=== PATIENT | female | born 1995 | race Caucasian/White ===

== ENCOUNTER 2016-06-24 13:17 | Emergency (ER) | payer SELFPAY ==
[2016-06-24 13:32] VITALS: BP 159/85
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
== END 2016-06-24 15:39 | disposition home or self-care (01) ==
LOC: ED 13:17
DX: M25.552 Pain in left hip (principal); M25.512 Pain in left shoulder; V89.2XXA Person injured in unspecified motor-vehicle accident, traffic, initial encounter; Y93.9 Activity, unspecified; Y92.9 Unspecified place or not applicable
CPT/HCPCS: 99281

== ENCOUNTER 2016-09-05 21:33 | Emergency (ER) | payer BC ==
[2016-09-05 21:41] VITALS: BP 157/93
--- NOTE | 2016-09-05 22:27 | UC ---
Skin Complaint HPI - HPI Summary HPI Summary: The patient comes in today for: 1. Skin lesions Onset: 2 days ago. Palliative/provocative: Touching makes it worse. Quality: Throbbing. Region: Lower left Severity: 10/10 Time: Constant. Associated symptoms: Event: She does not know for sure that "bit" her, but initially, they were small red areas. Over the last 24 hours, they got worse with whiteheads. They are tender. Home treatment: Lanacaine did not help. * - History of Current Complaint Chief Complaint: UCSkin Time Seen by Provider: 09/05/16 22:22 Stated Complaint: BUG BITES ON LEG Hx Obtained From: Patient Hx Last Menstrual Period: 09/01/16 ?: No - Allergy/Home Medications Allergies/Adverse Reactions: Allergies Allergy/AdvReac Type Severity Reaction Status Date / Time Spironolactone Allergy See Comment Verified 09/05/16 21:40 Home Medications: Home Medications Benzocaine-Benzethonium [Lanacane Anti-Itch 2-in-1 20-0.2 %] 1 cre EX PRN [History] Review of Systems Constitutional: Negative Skin: Rash Eyes: Negative ENT: Negative Respiratory: Negative Cardiovascular: Negative Gastrointestinal: Negative Genitourinary: Negative Motor: Negative All Other Systems Reviewed And Are Negative: Yes PMH/Surg Hx/FS Hx/Imm Hx Previously Healthy: No - Family planning/BCP Psychological History: Anxiety, Depression - Surgical History Surgical History: Yes Surgery Procedure, Year, and Place: Spine Curvature repair at age 2 years - Family History Known Family History: Positive: Cardiac Disease - father CAD, Hypertension - father, Diabetes - mother - Social History Occupation: Employed Full-time Alcohol Use: Occasionally Substance Use Type: None Smoking Status (MU): Never Smoked Tobacco Household Exposure Type: Cigarettes - Immunization History Most Recent Influenza Vaccination: not recently Most Recent Tetanus Shot: up to date Physical Exam Triage Information Reviewed: Yes Appearance: Well-Appearing, No Pain Distress, Well-Nourished Vital Signs: Initial Vital Signs Temp 97.3 F 09/05/16 21:37 Pulse 105 09/05/16 21:37 Resp 16 09/05/16 21:37 BP 157/93 09/05/16 21:37 Pulse Ox 100 09/05/16 21:37 Vital Signs Reviewed: Yes Eyes: Positive: Conjunctiva Clear. Negative: Discharge ENT: Positive: Hearing grossly normal. Negative: Pharyngeal erythema, Nasal congestion, Nasal drainage, TM bulging, TM dull, TM red, Tonsillar swelling, Tonsillar exudate Dental: Negative: Gross Decay/Caries @, Dental Fracture @ Neck: Positive: Supple, Nontender, No Lymphadenopathy. Negative: Nuchal Rigidity Respiratory: Positive: Lungs clear, No respiratory distress, No accessory muscle use. Negative: Crackles, Wheezing Cardiovascular: Positive: RRR, No Murmur Abdomen Description: Positive: Nontender, No Organomegaly, Soft. Negative: Distended, Guarding Musculoskeletal: Positive: Strength Intact, ROM Intact Neurological: Positive: Alert Psychological: Positive: Age Appropriate Behavior, Consolable Skin: Positive: rashes - She had muliple erthematous and tender macular lesions on her lower left anterior leg. A few of these lesions has pustules. The tops of these were broken and the pus captured for culture. Course/Dx - Course Course Of Treatment: Skin culture was taken. - Diagnoses Provider Diagnoses: cellulitis Discharge - Discharge Plan Condition: Stable Disposition: HOME Patient Education Materials: Cellulitis (ED) Referrals: No Primary Care Phys,NOPCP [Primary Care Provider] - 3 Days (Please see your primary care provider in the next several days to see how well you are doing. If you don't have a primary care provider, please contact the physician referral service. If you can't get in timely, please you may come back to see us until you can. If you get worse, please be seen sooner by us or the ER.) Additional Instructions: IF you are not able to see your primary care provider by this or Monday , please go to the [place] office in the morning for me to check you then.
[2016-09-05] MEDS ORDERED: Cephalexin CAP* 500 MG PO ONE (22:34)
[2016-09-05] MEDS ORDERED: Sulfamethox/Trimethoprim DS 800/160* TAB PO ONE (22:34)
--- NOTE | 2016-09-08 14:57 | UC ---
Progress - Progress Note Progress Note: Please notify pt culture (+) for staph may stop one of the antibiotics (either one will cover it) she should follow up as per d/c instructions
== END 2016-09-05 22:54 | disposition home or self-care (01) ==
LOC: UCEAST 21:33
DX: L03.116 Cellulitis of left lower limb (principal)
CPT/HCPCS: 87070; 87077; 87186; 87205; 87640; 87641; 99213; A9270-GY; G0463

== ENCOUNTER 2017-08-07 17:58 | Emergency (ER) | payer BC, OTHER ==
[2017-08-07 18:07] VITALS: BP 159/111
--- NOTE | 2017-08-07 19:01 | UC ---
Abdominal Pain Female HPI - HPI Summary HPI Summary: 21 yo female with dysuria and urgency x 1 day no f/c some suprapubic pain no d/c no n/v/d - History of Current Complaint Chief Complaint: UCAbdominalPain Stated Complaint: ABDOMINAL PAIN Time Seen by Provider: 08/07/17 18:37 Hx Obtained From: Patient Hx Last Menstrual Period: 3 wks ago Onset/Duration: Gradual Onset, Lasting Hours Timing: Constant Severity Initially: Mild Severity Currently: Mild Pain Intensity: 0 Pain Scale Used: 0-10 Numeric Location: Suprapubic Character: Burning Alleviating Factor(s): Nothing Associated Signs and Symptoms: Positive: Negative, Urinary Symptoms Allergies/Adverse Reactions: Allergies Allergy/AdvReac Type Severity Reaction Status Date / Time spironolactone Allergy Difficulty Verified 08/07/17 18:08 Breathing PMH/Surg Hx/FS Hx/Imm Hx Previously Healthy: Yes Cardiovascular History: Hypertension - on no meds - Surgical History Surgical History: Yes Surgery Procedure, Year, and Place: Spine Curvature repair at age 2 years - Family History Known Family History: Positive: Cardiac Disease - father CAD, Hypertension - father, Diabetes - mother - Social History Alcohol Use: Occasionally Substance Use Type: None Smoking Status (MU): Never Smoked Tobacco Household Exposure Type: Cigarettes - Immunization History Most Recent Influenza Vaccination: not recently Most Recent Tetanus Shot: up to date Review of Systems Constitutional: Negative Skin: Negative Eyes: Negative ENT: Negative Respiratory: Negative Cardiovascular: Negative Gastrointestinal: Negative Genitourinary: Dysuria, Frequency, Urgency Motor: Negative Neurovascular: Negative Musculoskeletal: Negative Neurological: Negative Psychological: Negative Is Patient Immunocompromised?: No All Other Systems Reviewed And Are Negative: Yes Physical Exam Triage Information Reviewed: Yes Appearance: Well-Appearing, No Pain Distress, Well-Nourished Vital Signs: Initial Vital Signs Temp 97.4 F 08/07/17 18:04 Pulse 95 08/07/17 18:04 Resp 12 08/07/17 18:04 BP 159/111 08/07/17 18:04 Pulse Ox 100 08/07/17 18:04 Vital Signs Reviewed: Yes Eyes: Positive: Conjunctiva Clear ENT: Positive: Hearing grossly normal. Negative: Nasal congestion, Nasal drainage, Trismus, Muffled voice, Hoarse voice Neck: Positive: Supple, Nontender, No Lymphadenopathy Respiratory: Positive: Lungs clear, Normal breath sounds, No respiratory distress, No accessory muscle use Cardiovascular: Positive: RRR, No Murmur Abdomen Description: Positive: Nontender, No Organomegaly. Negative: CVA Tenderness (R), CVA Tenderness (L), Distended, Guarding Bowel Sounds: Positive: Present Musculoskeletal: Positive: ROM Intact, No Edema Neurological: Positive: Alert, Muscle Tone Normal Psychological Exam: Normal Skin Exam: Normal Abd Pain Female Course/Dx - Course Course Of Treatment: UA ++WBCs, ++ RBCs. (-) HCG. advised to see her PCP to recheck BP - Differential Dx/Diagnosis Provider Diagnoses: dysuria. suspect UTI Discharge - Sign-Out/Discharge Documenting (check all that apply): Discharge/Admit/Transfer - Discharge Plan Condition: Stable Disposition: HOME Prescriptions: Cephalexin CAP* [Keflex CAP*] 500 mg PO BID #14 cap Fluconazole 150 MG (NF) [Diflucan 150 mg (NF)] 150 mg PO ONCE #2 tab Phenazopyridine TAB* [Pyridium TAB*] 100 mg PO TID #6 tab Patient Education Materials: Dysuria (ED) Referrals: No Primary Care Phys,NOPCP [Primary Care Provider] - Additional Instructions: recheck for worsening symptoms recheck for new symptoms recheck in 2 days if not better - Billing Disposition and Condition Condition: STABLE Disposition: HOME
== END 2017-08-07 19:13 | disposition home or self-care (01) ==
LOC: UCEAST 17:58
DX: R30.0 Dysuria (principal); Z32.02 Encounter for pregnancy test, result negative; I10 Essential (primary) hypertension
CPT/HCPCS: 81003; 84702; 87086; 99212; G0463

== ENCOUNTER 2018-04-28 17:14 | Inpatient (IN) | payer BC ==
--- OUTSIDE RECORDS SUMMARY | 2018-04-28 17:35 | XMS REPORT | Continuity of Care Document ---
:1995 Author Organization [facility] Care Team Providers Name Role Phone RENETTA LOCK Admitting Physician RENETTA LOCK Attending Physician MERT DAWSON Primary Care Physician Allergies and Intolerances Code Code Allergy Substance Type Reaction Severity Start End Status System Date Date 999 RXNorm Spironolactone Drug Shortness of Unknown Active allergy breath (disorder) Medications RxNorm Medication Dose Route Instructions Start Date End Date Status 033226 Ethinyl Estradiol 1 tab oral orally daily Active 0.035 MG / Norethindrone 1 MG Oral Tablet 19751211 Fluconazole 150 MG 150 mg oral orally once (take Active Oral Tablet one tab today and day 3 and day 8) Fluoxetine Oral 20 mg oral orally daily Active Problems No Data in the system Procedures No data in the system Results Laboratory Results Order: GC-CHLAMYDIA AMPLIFIED ASSAY Specimen Source: Swab Body Site: Endocervix Legend: (G,H)=High, (GG,HH,CH,#H)= Above High Threshold, (#,L)=Low, (##,CL,#L,LL)=Below Low Threshold, (C,CC,CA,#A, A)=Abnormal LOINC Test Result Flag Range Units Date 1C trach DNA XXX Ql PCR NEGATIVE NEGATIVE 03/24/2018 09:38 Interpretive Johanna: 1A negative result does not rule out Chlamydia trachomatis infection because results are dependent on adequate specimen collection, absence of inhibitors, and sufficient DNA to be detected. Methodology: Nucleic Acid Amplification (JASMIN) 65899-9 1N gonorrhoea DNA XXX Ql PCR NEGATIVE NEGATIVE 03/24/2018 09:38 Interpretive Johanna: 1A negative result does not rule out Neisseria gonorrhoeae infection because results are dependent on adequate specimen collection, absence of inhibitors, and sufficient DNA to be detected. Performing Lab Footnotes:[facility] - [id number] [place] [address] ANUSHA BURDENGORAN Order: VAGINITIS PANEL Specimen Source: Body Site: Legend: (G,H)=High, (GG,HH,CH,#H)=Above High Threshold, (#,L)=Low, (##,CL,#L,LL)=Below Low Threshold , (C,CC,CA,#A,A)=Abnormal LOINC Test Result Flag Range Units Date 1Trichomonas Genital Cult NEGATIVE NEGATIVE 03/24/2018 09:35 00646-8 1G vaginalis DNA Vag Ql NEGATIVE NEGATIVE 03/24/2018 09:35 bDNA 59063-6 1Candida DNA Vag Ql PCR NEGATIVE NEGATIVE 03/24/2018 09:35 1Methodology: DNA Probe Performing Lab Footnotes:[facility] - [id number] [place] [address] ANUSHA RODGERSD1 Microbiology Results w Susceptibilities Order: CULTURE URINE Specimen Source: Urine Body Site: Urine specimen collection, clean catchCultural Observations:Mixed growth consistent with vaginal marylu itpwfuq7Juhnyxdtex Lab Footnotes:[facility] - [id number] [place] [address] ANUSHA LUND Order: CULTURE VAGINAL-CERVICAL Specimen Source: Swab Body Site: Cervix uteri structureDirect Exam:Smear not received. Gram stain is the preferred test for the [id number] of bacterial vaginosis.1Cultural Observations: Staphylococcus aureus, Streptococcus agalactiae (Group B), or [id number] were NOT isolated.1Isolate #1:1Yeast (Rare)Performing Lab Footnotes:[facility] - [id number] - [address] [place] [address] ANUSHA LUND Social History Code Code System Social History Observation Description Dates Observed 662567393 SNOMED CT Current Smoking Status Never smoker UNK AdministrativeGender Sex Assigned At Unknown Vital Signs Code Code System Vitals Value Date 8310-5 LOINC Body Temperature 98.9 [degF] 03/24/2018 8865-8 LOINC Pulse Rate 85 {beats}/min 03/24/2018 9279-1 LOINC Respiratory Rate 20 /min 03/24/2018 19624-7 LOINC O2% BldC Oximetry 96 % 03/24/2018 8480-6 LOINC BP Systolic 131 mm[Hg] 03/24/2018 8462-4 LOINC BP Diastolic 89 mm[Hg] 03/24/2018 8302-2 LOINC Height 63 [in_i] 03/24/2018 74106-1 LOINC Weight 127 kg 03/24/2018 3140-1 LOINC Body surface area Derived from formula 2.23 m2 03/24/2018 62373-9 MAY BMI (Body Mass Index) 49.6 kg/m2 03/24/2018 Goals Section No data in the system Health Concerns No data in the systemEncounter Diagnosis Date Code Code System Diagnosis Status N76.0 ICD10 ACUTE VAGINITIS Active Advance Directives *RHIO - CONSENT IS YES Directive Type Effective Date 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 Supporting Document Name Address Phone No Directive Type 03/24/2018 9:25:51 Not Specified Not Specified Not Specified None No specified AM Family History No data in the system Functional Status Code Functional Condition Code System Date Status Independent adls SNOMED CT 03/24/2018 Active Appears well nourished/hydrated SNOMED CT 03/24/2018 Active Immunizations No data in the system Medical Equipment No data in the system Mental Status Code Cognitive Condition Code System Date Status Oriented x [address] 03/24/2018 Active Moves all extremities SNOMED CT 03/24/2018 Active No acute distress SNOMED CT 03/24/[address] 03/24/2018 Active Assessment and Plan Assessments No data in the systemPlan Of Treatment No data in the systemPending Tests Test Start Date Point of Care /URINE 03/24/2018 Point of Care URINE DIPSTICK 03/24/2018 Hospital Discharge Instructions No data in the system Reason for Visit Reason for Visit Illness
[2018-04-28 18:43] LABS: ABS Basophils 0.1 10^3/ul (0-0.2); ABS Eosinophils 0.2 10^3/ul (0-0.6); ABS Lymphocytes 1.2 10^3/ul (1.0-4.8); ABS Monocytes 0.7 10^3/ul (0-0.8); ABS Neutrophils 5.7 10^3/ul (1.5-7.7); ABS Nucleated RBC 0 10^3/ul; Eosinophil % 2.2 %; Hematocrit 40 % (35-47); Hemoglobin 13.1 g/dl (12.0-16.0); Lymphocyte % 15.7 %; Mean Corpuscular HGB Conc 33 g/dl (31-36); Mean Corpuscular Hemoglobin 28 pg (27-31); Mean Corpuscular Volume 84 fL (80-97); Mean Platelet Volume 6.8 fL (7.4-10.4); Nucleated Red Blood Cells % 0.1; Platelet Count 394 10^3/ul (150-450); Red Blood Count 4.72 10^6/ul (4.00-5.40); Red Cell Distribution Width 14 % (10.5-15); White Blood Count 7.9 10^3/ul (3.5-10.8)
[2018-04-28 18:49] LABS: INR 0.99 (0.77-1.02)
[2018-04-28 18:59] LABS: ALT 32 U/L (7-52); AST 31 U/L (13-39); Albumin/Globulin Ratio 1.1 (1-3); Alkaline Phosphatase 65 U/L (34-104); Anion Gap 10 mmol/L (2-11); Blood Urea Nitrogen 7 mg/dL (6-24); CO2 Carbon Dioxide 26 mmol/L (22-32); Calcium 7.1 mg/dL (8.6-10.3); Chloride 104 mmol/L (101-111); Creatine Kinase 267 U/L (10-223); EGFR African American 111.7 (>60); EGFR Non-African American 92.4 (>60); Globulin 3.7 g/dL (2-4); Glucose 108 mg/dL (70-100); Potassium 3.8 mmol/L (3.5-5.0); Sodium 140 mmol/L (135-145); Total Protein 7.7 g/dL (6.4-8.9)
[2018-04-28 19:03] LABS: CKMB ng/mL 19.6 ng/mL (0.6-6.3)
[2018-04-28 19:06] LABS: HCG Pregnancy < 0.60 mIU/mL
[2018-04-28] MEDS ORDERED: Aspirin 81 mg CHEW TAB* 81 MG TAB.CHEW PO ONE (19:16)
[2018-04-28] MEDS ORDERED: Heparin for STEMI(*) 5,000 UNITS/ML 1 ML VIAL IV ONE (19:16)
[2018-04-28 19:17] LABS: Troponin I 3.03 ng/mL (<0.04)
[2018-04-28] MEDS ORDERED: Heparin DRIP 25,000 UNITS(*) 25,000 UNITS/500 ML BAG IV SCH (19:30)
[2018-04-28 19:48] LABS: C Reactive Protein 83.14 mg/L (<8.01)
[2018-04-28] MEDS ORDERED: Heparin DRIP 25,000 UNITS(*) 25,000 UNITS/500 ML BAG ONE (19:53)
[2018-04-28 20:08] LABS: Activated Partial Thrombo Time 29.6 seconds (26.0-36.3)
[2018-04-28] MEDS ORDERED: ALPRAZolam TAB* 0.5 MG PO PRN (20:09)
--- NOTE | 2018-04-28 20:10 | ADMNOTE ---
Subjective Date of Service: 04/28/18 - HISTORY AND PHYSICAL Interval History: HISTORY AND PHYSICAL CHIEF COMPLAINT: Chest pain HISTORY OF PRESENTING ILLNESS: 22 year old Female with history of PCOS, anxiety on oral contraceptives, who presents to the emergency room because of chest pain. She was in her usual state of good health until two days ago. Two days ago, she developed "24 hour GI Bug" which shes described as diarrhea, chills and vomiting. This resolved, then yesterday at about 7:15 PM she developed sharp chest tightness which was also pressure like pain, associated with shortness of breath, which was worse when lying down. The pain resolved when she went to sleep. There was associated palpitations. Then today evening, the pain recurred- again sharp chest tightness with shortness of breath, and palpitations. Again it was worse when lying down. No recent travel. She has been on control pills X 2 years, with no recent changes. In the emergency room: Troponins were elevated, D-dimer was elevated, heparin drip was started, business applications analyst was called. PAST MEDICAL HISTORY Anxiety Polycystic ovarian syndrome PAST SURGICAL HISTORY Back surgery at age 2 SOCIAL HISTORY Lives at home, is a [employer]. Does not smoke, occasional alcohol use FAMILY HISTORY Mother: diabetes, lupus Father: Hypertension, heart disease Review of Systems - Measurements Intake and Output: Intake and Output Last 24 Hours 04/26/18 04/27/18 04/28/18 04/29/18 06:59 06:59 06:59 06:59 Weight 288 lb - Review of Systems Constitutional Symptoms: Negative: Fever, Night Sweats Dermatology: Negative: Normal, Rash HEENT: Negative: Change in Hearing, Vertigo Eyes: Negative: Change in Vision, Double Vision Thyroid: Negative: Goiter, Constipation, Palpitations Pulmonary: Positive: Shortness of Breath Negative: Cough, Sputum Cardiology: Positive: Chest Pain, Shortness of Breath, Palpitations Gastroenterology: Positive: Nausea, Vomiting, Diarrhea Genital - Urinary: Negative: Dysuria, Polyuria Genitourinay - Female: Negative: Vaginal Discharge, Dysmenorrhea Endocrinology: Positive: Obesity Negative: Diabetes Mellitus, Hyperglycemia, Hx Hypoglycemia Hematologic/Lymphatic: Negative: Anemia Neurology: Negative: Headache, Migraines, Change in Vision Psychiatry: Positive: Anxiety Negative: Depression, Depressed Mood Objective Active Medications: Alprazolam (Xanax Tab*) 0.5 mg PO BID PRN PRN Reason: ANXIETY Fluoxetine HCl (Prozac Cap*) 20 mg PO DAILY [facility] Heparin Sodium/Dextrose (Heparin Drip 25,000 Units(*)) 25,000 units in 500 mls @ 0 mls/hr IV PER RATE [facility]; Protocol Vital Signs - 8 hr 04/28/18 04/28/18 04/28/18 17:16 18:39 19:00 Temperature 97.6 F Pulse Rate 94 94 94 Respiratory 20 37 28 Rate Blood Pressure 167/99 (mmHg) O2 Sat by Pulse 98 98 99 Oximetry 04/28/18 19:44 Temperature Pulse Rate 100 Respiratory 23 Rate Blood Pressure 131/96 (mmHg) O2 Sat by Pulse 100 Oximetry Appearance: Obese young female lying in ER stretcher, not in distress. Atraumatic normocephalic Eyes: PERRLA, - - no nystagmus Ears/Nose/Mouth/Throat: Clear Oropharnyx, Mucous Membranes Moist, - - no oropharyngeal erythema, no cervical lymphadenopathy Neck: Trachea Midline, No Thyroid Enlargement, Masses Respiratory: Symmetrical Chest Expansion and Respiratory Effort, Clear to Auscultation Cardiovascular: - - no chest wall tenderness, no friciton rub, regular tachcyardia, no murmurs. Abdominal: NL Sounds; No Tenderness; No Distention, No Hepatosplenomegaly Extremities: No Edema, No Clubbing, Cyanosis Skin: No Rash or Ulcers Neurological: Alert and Oriented x 3, NL Sensation, NL Muscle Strength and Tone , - - speech clear, no facial droop, symmetric smile. no nystagmus. Result Diagrams: 04/28/18 18:33 04/28/18 18:33 EKG Data: EKG: sinus tachycardia Assess/Plan/Problems-Billing Assessment: - Patient Problems (1) Myopericarditis Current Visit: Yes Status: Acute Code(s): I31.9 - DISEASE OF PERICARDIUM, UNSPECIFIED SNOMED Code(s): 193543988 Comment: Likely myopericarditis, given recent viral illness. Cardiology saw patient in the ED. For now till we have ruled out other etiology: heparin drip. Check ECHO, serial trop, check CTA given control pills, obesity, female, and elvated d-dimer. If CTA negative, can use ibuprofen vs. aspirin as anit-inflammatory hold control pills for now. (2) Anxiety Current Visit: Yes Status: Acute Code(s): F41.9 - ANXIETY DISORDER, UNSPECIFIED SNOMED Code(s): 44484296 Comment: Continue home medications controlled. Status and Disposition: Assessment and plan discussed with patient Additional management as the hospital course progresses, per discretion of daytime rounding hospitalist.
[2018-04-28] MEDS ORDERED: Iodixanol* (CONTRAST) 320 MG/ML 100 ML SDV IV ONE (20:22)
--- NOTE | 2018-04-28 21:24 | ED ---
HPI Chest Pain - HPI Summary HPI Summary: Patient complains of 2 episodes of CP, SOB, palpitations, lightheadedness starting last night. CP described as sternal, tightness, no radiation. Patient had symptoms for several hours last night until she went to sleep. Patient felt fine in the morning. Sudden onset same symptoms this evening for about half an hour prior to arrival in the ED. Denies history of similar symptoms, fever, cough, sore throat, N/V/D, abdominal pain, change in vision, change in BM. Denies history of blood clots, recent surgery trauma, , history of long travel. Medical history is anxiety. Denies history of similar symptoms with anxiousness. Denies smoking cigarettes, legal or illegal stimulants, recreational drugs, EtOH. - History of Current Complaint Chief Complaint: EDChestPainROMI Time Seen by Provider: 04/28/18 18:29 Hx Obtained From: Patient Hx Last Menstrual Period: 3 wks ago Onset/Duration: Started Hours Ago Timing: Intermittent Initial Severity: Mild Current Severity: Mild Pain Intensity: 3 Pain Scale Used: 0-10 Numeric Chest Pain Location: Mid Sternal Chest Pain Radiates: No Character: Tightness Aggravating Factor(s): Nothing Alleviating Factor(s): Nothing Associated Signs and Symptoms: Positive: Chest Pain, Shortness of Breath, Palpitations - Allergy/Home Medications Allergies/Adverse Reactions: Allergies Allergy/AdvReac Type Severity Reaction Status Date / Time spironolactone Allergy Difficulty Verified 04/28/18 17:18 Breathing Home Medications: Home Medications ALPRAZolam [Alprazolam] 0.5 mg PO BID PRN 04/28/18 [History Confirmed 04/28/18] FLUoxetine CAP* [Prozac CAP*] 20 mg PO DAILY 04/28/18 [History Confirmed ] PMH/Surg Hx/FS Hx/Imm Hx Endocrine/Hematology History: Denies: Hx Diabetes, Hx Thyroid Disease Cardiovascular History: Denies: Hx Hypertension Respiratory History: Denies: Hx Asthma, Hx Chronic Obstructive Pulmonary Disease (COPD) GI History: Denies: Hx Ulcer History: Denies: Hx Dialysis Sensory History: Denies: Hx Eye Prosthesis EENT History: Denies: Hx Deafness Neurological History: Reports: Hx Migraine Denies: Hx Headaches Psychiatric History: Reports: Hx Anxiety Denies: Hx Depression - Surgical History Surgery Procedure, Year, and Place: Spine Curvature repair at age 2 years Infectious Disease History: No Infectious Disease History: Denies: Hx Hepatitis, Hx Human Immunodeficiency Virus (HIV), History Other Infectious Disease, Traveled Outside the [place] in Last 30 Days - Family History Known Family History: Positive: Cardiac Disease - father CAD, Hypertension - father, Diabetes - mother - Social History Alcohol Use: Occasionally Substance Use Type: Reports: None Smoking Status (MU): Never Smoked Tobacco Review of Systems Constitutional: Negative Eyes: Negative ENT: Negative Positive: Palpitations, Chest Pain Positive: Shortness Of Breath Gastrointestinal: Negative Genitourinary: Negative Musculoskeletal: Negative Skin: Negative Neurological: Negative Psychological: Normal All Other Systems Reviewed And Are Negative: Yes Physical Exam Triage Information Reviewed: Yes Vital Signs On Initial Exam: Initial Vitals Temp Pulse Resp BP Pulse Ox 97.6 F 94 20 167/99 98 04/28/18 17:16 04/28/18 17:16 04/28/18 17:16 04/28/18 17:16 04/28/18 17:16 Vital Signs Reviewed: Yes Appearance: Positive: Well-Appearing Skin: Positive: Warm Head/Face: Positive: Normal Head/Face Inspection Eyes: Positive: Normal ENT: Positive: Normal ENT inspection Neck: Positive: Supple Respiratory/Lung Sounds: Positive: Clear to Auscultation Cardiovascular: Positive: Normal Abdomen Description: Positive: Nontender Musculoskeletal: Positive: Normal Neurological: Positive: Normal Psychiatric: Positive: Normal AVPU Assessment: Alert - Tabitha Coma Scale Best Eye Response: 4 - Spontaneous Best Motor Response: 6 - Obeys Commands Best Verbal Response: 5 - Oriented Coma Scale Total: 15 Diagnostics - Vital Signs Vital Signs Temp Pulse Resp BP Pulse Ox 04/28/18 20:00 95 22 100 04/28/18 19:44 100 23 131/96 100 04/28/18 19:00 94 28 99 04/28/18 18:39 94 37 98 04/28/18 17:16 97.6 F 94 20 167/99 98 - Laboratory Lab Results: Lab Results 04/28/18 04/28/18 04/28/18 Range/Units 18:29 18:29 18:33 WBC 7.9 (3.5-10.8) 10^3/ul RBC 4.72 (4.00-5.40) 10^6/ul Hgb 13.1 (12.0-16.0) g/dl Hct 40 (35-47) % MCV 84 (80-97) fL MCH 28 (27-31) pg MCHC 33 (31-36) g/dl RDW 14 (10.5-15) % Plt Count 394 (150-450) 10^3/ul MPV 6.8 L (7.4-10.4) fL Neut % (Auto) 72.0 % Lymph % (Auto) 15.7 % [place] % (Auto) 9.3 % Eos % (Auto) 2.2 % Baso % (Auto) 0.8 % Absolute Neuts (auto) 5.7 (1.5-7.7) 10^3/ul Absolute Lymphs (auto) 1.2 (1.0-4.8) 10^3/ul Absolute Monos (auto) 0.7 (0-0.8) 10^3/ul Absolute Eos (auto) 0.2 (0-0.6) 10^3/ul Absolute Basos (auto) 0.1 (0-0.2) 10^3/ul Absolute Nucleated RBC 0 10^3/ul Nucleated RBC % 0.1 ESR 31 H (0-14) mm/Hr INR (Anticoag Therapy) (0.77-1.02) APTT 29.6 (26.0-36.3) seconds D-Dimer, Quantitative 270 H (Less Than 230) ng/mL Sodium (135-145) mmol/L Potassium (3.5-5.0) mmol/L Chloride (101-111) mmol/L Carbon Dioxide (22-32) mmol/L Anion Gap (2-11) mmol/L BUN (6-24) mg/dL Creatinine (0.51-0.95) mg/dL Est GFR ( Amer) (>60) Est GFR (Non-Af Amer) (>60) BUN/Creatinine Ratio (8-20) Glucose (70-100) mg/dL Lactic Acid (0.5-2.0) mmol/L Calcium (8.6-10.3) mg/dL Total Bilirubin (0.2-1.0) mg/dL AST (13-39) U/L ALT (7-52) U/L Alkaline Phosphatase (34-104) U/L Total Creatine Kinase (10-223) U/L CK-MB (CK-2) (0.6-6.3) ng/mL Troponin I (<0.04) ng/mL C-Reactive Protein (<8.01) mg/L Total Protein (6.4-8.9) g/dL Albumin (3.2-5.2) g/dL Globulin (2-4) g/dL Albumin/Globulin Ratio (1-3) Beta HCG, Quant mIU/mL 04/28/18 04/28/18 04/28/18 Range/Units 18:33 18:33 18:33 WBC (3.5-10.8) 10^3/ul RBC (4.00-5.40) 10^6/ul Hgb (12.0-16.0) g/dl Hct (35-47) % MCV (80-97) fL MCH (27-31) pg MCHC (31-36) g/dl RDW (10.5-15) % Plt Count (150-450) 10^3/ul MPV (7.4-10.4) fL Neut % (Auto) % Lymph % (Auto) % [place] % (Auto) % Eos % (Auto) % Baso % (Auto) % Absolute Neuts (auto) (1.5-7.7) 10^3/ul Absolute Lymphs (auto) (1.0-4.8) 10^3/ul Absolute Monos (auto) (0-0.8) 10^3/ul Absolute Eos (auto) (0-0.6) 10^3/ul Absolute Basos (auto) (0-0.2) 10^3/ul Absolute Nucleated RBC 10^3/ul Nucleated RBC % ESR (0-14) mm/Hr INR (Anticoag Therapy) 0.99 (0.77-1.02) APTT (26.0-36.3) seconds D-Dimer, Quantitative (Less Than 230) ng/mL Sodium 140 (135-145) mmol/L Potassium 3.8 (3.5-5.0) mmol/L Chloride 104 (101-111) mmol/L Carbon Dioxide 26 (22-32) mmol/L Anion Gap 10 (2-11) mmol/L BUN 7 (6-24) mg/dL Creatinine 0.78 (0.51-0.95) mg/dL Est GFR ( Amer) 111.7 (>60) Est GFR (Non-Af Amer) 92.4 (>60) BUN/Creatinine Ratio 9.0 (8-20) Glucose 108 H (70-100) mg/dL Lactic Acid 1.6 (0.5-2.0) mmol/L Calcium 7.1 L (8.6-10.3) mg/dL Total Bilirubin 0.20 (0.2-1.0) mg/dL AST 31 (13-39) U/L ALT 32 (7-52) U/L Alkaline Phosphatase 65 (34-104) U/L Total Creatine Kinase 267 H (10-223) U/L CK-MB (CK-2) 19.6 H (0.6-6.3) ng/mL Troponin I 3.03 H* (<0.04) ng/mL C-Reactive Protein 83.14 H (<8.01) mg/L Total Protein 7.7 (6.4-8.9) g/dL Albumin 4.0 (3.2-5.2) g/dL Globulin 3.7 (2-4) g/dL Albumin/Globulin Ratio 1.1 (1-3) Beta HCG, Quant < 0.60 mIU/mL Result Diagrams: 04/28/18 18:33 04/28/18 18:33 Lab Statement: Any lab studies that have been ordered have been reviewed, and results considered in the medical decision making process. Chest Pain Course/Dx - Course Course Of Treatment: Patient complains of 2 episodes of CP, SOB, palpitations, lightheadedness starting last night. CP described as sternal, tightness, no radiation. Patient had symptoms for several hours last night until she went to sleep. Patient felt fine in the morning. Sudden onset same symptoms this evening for about half an hour prior to arrival in the ED. Denies history of similar symptoms, fever, cough, sore throat, N/V/D, abdominal pain, change in vision, change in BM. Denies history of blood clots, recent surgery trauma, , history of long travel. Medical history is anxiety. Denies history of similar symptoms with anxiousness. Denies smoking cigarettes, legal or illegal stimulants, recreational drugs, EtOH. Physical exam normal. Vital signs within normal limits. ESR 31. D-dimer 270. Troponin 3.3. CRP 83. EKG mild diffuse ST elevation. Chest x-ray unremarkable. CTA unremarkable. Discussed patient with press operator printing rack production worker Dr. Ortiz who recommended admission. Dr. Ortiz stated likely diagnosis myopericarditis. Patient admitted to Hospitalist - Diagnoses Provider Diagnoses: Chest pain, Shortness of breath Discharge - Sign-Out/Discharge Documenting (check all that apply): Patient Departure - Discharge Plan Condition: Stable Disposition: ADMITTED TO [facility] - Billing Disposition and Condition Condition: STABLE Disposition: Admitted to [facility]
--- NOTE | 2018-04-29 00:25 | CONS ---
CARDIOLOGY CONSULTATION REPORT: DATE OF CONSULT: 04/28/18 PATIENT OF: Joanna Poon NP, over at [facility], and my office. CONSULTING PHYSICIAN: Dr. Laurence Ramirez. REASON FOR EVALUATION: Chest pain, elevated troponin. HISTORY OF PRESENT ILLNESS: This is a very pleasant 22-year-old woman who has a history of borderline hypertension, obesity, and oral contraceptive use for the last 3 years. She was in her usual state of health until 2 days ago on , when she had an episode of vomiting and a day of diarrhea and stomach upset associated with chills and fever, which she did not measure a temperature. She said that her symptoms resolved after about 12 to 14 hours. She felt well on Monday till 5 p.m. 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 It started at about 7:15 p.m. and progressed. She went to sleep later than night with the pain. She said it was worse with lying supine and better sitting up and she actually propped herself up. She said that she was fine again today until about 5 p.m., when she developed tightness. Again, was worse supine, better sitting up, and was associated with shortness of breath and a gradually increasing heart rate. Because of the symptoms, she came to emergency room. It resolved here in the emergency room, but her labs indicated an elevated troponin of 3.03 and a consultation was requested. She denies any chest pain now. She denies orthopnea or PND. No fevers, chills, or sweats. No diarrhea. No chest pain. No hematuria or dysuria. PAST MEDICAL HISTORY: Includes borderline hypertension, congenital absence of one kidney, obesity. She has been on oral contraceptives for 3 years. PAST SURGICAL HISTORY: She denies any past surgical history. FAMILY HISTORY: Includes her mother who of OH at 37 and she had diabetes and a father who is alive at 64, but had an OH at 58 and has vascular disease. She has no siblings. SOCIAL HISTORY: She is accompanied by her boyfriend. She denies tobacco use. She has about 2 alcoholic beverages a month. She has 4 cups of coffee a week. She does not exercise. She does not go up and down stairs. She has no shortness of breath or chest pain ordinarily walking the short distances she walks. She denies any previous syncope, rheumatic fever, or murmurs. REVIEW OF SYSTEMS: Review of systems x10 was negative, except as above. PHYSICAL EXAM: On physical exam, she is a well-developed, obese female, 288 pounds. Blood pressure 131/97, heart rate of 104, O2 sats 100% on room air. No significant JVD. Carotids 2+ without bruits. No cervical adenopathy or thyromegaly. Extraocular muscles intact. Sclerae anicteric. Cardiac Exam: S1 , S2, with no murmurs, gallops, or rubs. Chest was clear. Abdominal Exam: Bowel sounds present, nontender. Femoral pulses intact without bruits. Distal pulses intact, no edema. Motor strength 5/5 bilaterally. Deep tendon reflexes 2/4. Alert and oriented x3. Negative Homans sign. DIAGNOSTIC STUDIES/LAB DATA: Labs include potassium of 3.8, BUN of 7, creatinine of 0.78. Troponin of 3.03, CK elevated at 267, CK-MB of 19.6, CRP was elevated at 83.17, D-dimer was elevated at 270. White count 7.9, hemoglobin at 13.1, hematocrit of 40, platelet count of 393. Her EKG from 1720 revealed sinus rhythm with about 0.[address] elevation in I, II, aVL, and V3 through V6 and [place] elevation in aVR. Repeat EKG at [address] elevation and beginning of some T-wave and poor R- wave progression. Chest x-ray and CT scan are pending at this point in time. IMPRESSION AND PLAN: My impression is that Ms. Anaya had a couple of episodes of chest pain over the last 2 days preceded by gastroenteritis. Her pain has resolved, but was worse supine and she has EKG changes that raise the possibility of injury perhaps due to pericarditis. Given the elevated troponin and CRP and her presentation, I suspect she has myopericarditis. I have discussed the case with Dr. Ramirez and I recommended the followin. Would proceed with the CT angio to rule pulmonary embolism given her elevated D- dimer and her risk factors for pulmonary embolism including obesity and oral contraceptive. 2. Would continue IV heparin as you are doing. 3. Would obtain an echocardiogram in the next 24 hours. 4. Would consider using aspirin as a nonsteroidal antiinflammatory for pain relief as needed and perhaps adding a nonsteroidal antiinflammatory longer term if indeed it appears that she has myocarditis. 5. Would consider using colchicine to decrease the risk of recurrences. 6. Would follow serial troponins, EKGs, and her sed rate and CRP. 7. Would consider the possibility of a coronary event, either thrombotic or dissection, although I think that is less likely; however, given her family history, this needs to be considered. 8. Would also check a lipid level given her family history of premature coronary disease. I did discuss the increased risk of morbidity and mortality from obesity and strongly suggested she decrease her weight and engage in regular moderate exercise once this episode is resolved. 9. I also recommended that if indeed she has myopericarditis, that she needs to refrain from vigorous exertion until she recovers. [id number]/[facility] #: [id number] Day after admission: addendum: 04.29.19 12;05 pm Since admision, her topronins, crp, and EKG's have improved. Her pain has improved.; the CTA was negative. Her echo revealed a minimal pericardial effusion without hemodynamic compromise. I discussed the case with her and Dr. Bradley. Plan: avoid nsaids given her single kidney. risk/benefits of colchicine discussed in light of renal issues; will defer for now. Use asa 650 to 975 mg as needed for cp refrain from work/exertion for 1-2 weeks and allow for pain to resolve. Avoid heavier exertion for 6weeks. followup in 1 month or sooner if symptoms worsen. 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 VICTOR MANUEL > 50% of the time 35 min was spent face to face and coordinating care. YOSHI
[2018-04-29] MEDS ORDERED: Heparin VIAL(*) 5000 UNITS/ML VIAL (FIVE THOUSAND) IV PRN (03:17)
[2018-04-29] MEDS ORDERED: Perflutren Lipid Microsphere* 3 ML VIAL ONE (08:49)
[2018-04-29] MEDS ORDERED: Aspirin TAB* 325 MG PO SCH (09:00)
[2018-04-29] MEDS ORDERED: FLUoxetine CAP* 20 MG PO SCH (09:00)
[2018-04-29] MEDS ORDERED: Aspirin TAB* 325 MG PO PRN (09:51)
[2018-04-29 10:26] LABS: C Reactive Protein 64.37 mg/L (<8.01)
[2018-04-29] MEDS ORDERED: Potassium Chloride LIQUID* 20 MEQ PACKET PO ONE (11:00)
[2018-04-29 11:30] VITALS: BP 140/89
--- NOTE | 2018-04-29 23:13 | DS ---
CC: Dr. Ortiz * DISCHARGE SUMMARY: DATE OF ADMISSION: DATE OF DISCHARGE: 04/29/18 PRINCIPAL DISCHARGE DIAGNOSIS: Myopericarditis. SECONDARY DISCHARGE DIAGNOSES: 1. Morbid obesity. 2. Polycystic ovarian syndrome. 3. Anxiety. 4. Congenital unilateral kidney. HOSPITAL COURSE BY PROBLEM: 1. Myopericarditis. Ms. Anaya presented to the emergency department with chest pain that began 1 day prior to admission in the setting of a recent viral illness. Her initial troponin was found to be 3 and her initial EKG showed diffuse mild ST elevation. Dr. Ortiz came in to see her in the emergency department and suspected myopericarditis; however, she was initiated on IV heparin given concern for acute coronary syndrome and a very significant family history and also underwent a CT angio given her use of oral contraceptive pills. The CT angio was negative for pulmonary embolism on 04/29/18. Her EKG have resolved and her ST segments had returned to baseline. Her troponin trended down and her CRP decreased from 83 to 64 and her chest pain was completely resolved. Dr. Ortiz continued to follow her and recommended discontinuing the heparin drip. He read her echocardiogram and reported to me with a small amount of pericardial fluid, which he felt was consistent with pericarditis. The official report is pending at the time of discharge and this is based on a verbal report. He agreed that she is stable to go home and she was anxious to go home on 04/29/18. She has declined taking aspirin while here because she has had no pain; however, she agrees to take it home should the pain return. I am requesting followup with Dr. Ortiz within 1 month, but I have asked her to call his office if she does not hear from them on Monday. She also follows up with [facility] for primary care, but I have given her my office number should she have any trouble getting in or need anything in the interim. She is instructed to return to the emergency department should she develop any worsening chest pain and any pain that does not resolve with aspirin or if she develops any new symptoms. 2. PCOS. Her oral contraceptive pills were resumed. 3. Anxiety. She was continued on Xanax and fluoxetine. [id number]/[facility] #: [id number] [facility]
--- NOTE | 2018-04-30 23:03 | ECHO ---
Patient: DIONNA RICO [facility] Rec#: [id number] : 1995 Date: 04/29/2018 Age: 22y Height: 160 cm / 63.0 in Weight: 130.6 kg / 287.8 lbs Sex: F BSA: 2.26 Room#: 432 Admit Date#: 04/28/2018 Type: Inpatient Referring: Laurence Ramirez Reading: Manish Ortiz MD [employer] Operator: Aury Wilson RN RDCS Transthoracic Echocardiogram Indication: Pericarditis BP: 126/73 HR: 80 Rhythm: NSR Findings History: Borderline HTN, obesity, oral contraceptives, recent gastroenteritis Technical Comments: The study is technically limited due to poor acoustic windows. The study is technically limited due to patient body habitus. Left Ventricle: The left ventricular chamber size is normal. Septal wall hypertrophy is observed. 1.1 cm. Global left ventricular wall motion and contractility are within normal limits. There is normal left ventricular systolic function. The estimated ejection fraction is 55-60%. There is no consistent Doppler evidence of clinically significant diastolic dysfunction. Left Atrium: The left atrial chamber size is normal. Right Ventricle: The right ventricular chamber size and systolic function are within normal limits. Right Atrium: The right atrial cavity size is normal. Aortic Valve: The aortic valve structure is not well visualized. There is no evidence of aortic valve thickening. There is no evidence of aortic regurgitation. There is no evidence of aortic stenosis. Mitral Valve: The mitral valve leaflets appear normal. There is no evidence of mitral regurgitation. There is no evidence of mitral stenosis. Tricuspid Valve: The tricuspid valve structure is not well visualized. There is trace tricuspid regurgitation. Unable to estimate the right ventricular systolic pressure. There is no tricuspid stenosis. Pulmonic Valve: The pulmonic valve structure is not well visualized. There is a trace pulmonic regurgitation. There is no pulmonic stenosis. Pericardium: A trivial pericardial effusion is visualized.seen best adjacent to the RV free wall in the apical views. It measures .36 cm in the apical 4 during systole. There are no signs of significant hemodynamic compromise. A pericardial fat pad is visualized. Aorta: There is no dilatation of the ascending aorta. There is no dilatation of the aortic arch. There is no dilation of the aortic root. Pulmonary Artery: The main pulmonary artery is not well visualized. Venous: The venous system is not well visualized. The inferior vena cava is not visualized. Contrast: Definity was used to optimize study. A total of 3 ml of diluted Definity was given IV. Summary: There was not any prior study for comparison. Conclusions There is normal left ventricular systolic function.The estimated ejection fraction is 55-60%. There is trace tricuspid regurgitation. A trivial pericardial effusion is visualized.seen best adjacent to the RV free wall in the apical views. It measures .36 cm in the apical 4 during systole. There are no signs of significant hemodynamic compromise. Measurements Name Value Normal Range RVIDd (AP) 2D 2.5 cm (0.9 - 2.6) RVDdMajor (2D) 3.7 cm (2.2 - 4.4) RAd ISD 4CH 4.6 cm (3.4 - 4.9) RA (A4C)W 3.2 cm (2.9 - 4.6) IVSd (2D) 1.1 cm (0.6 - 1) LVPWd (2D) 1 cm (0.6 - 1) LVIDd (2D) 4.1 cm (3.6 - 5.4) LVIDs (2D) 2.9 cm - LV FS (2D) 29 % (25 - 45) Aortic Annulus 2.2 cm (1.4 - 2.6) Ao root diameter (2D) 2.8 cm (2.1 - 3.5) Ascending Ao 2.8 cm (2.1 - 3.4) Aortic arch 2.3 cm (1.8 - 3.4) LA dimension (AP) 2D 3.3 cm (2.3 - 3.8) LAd ISD 4CH 4.1 cm (2.9 - 5.3) LA ISD 4CH W 3.3 cm (2.5 - 4.5) Name Value Normal Range MV E-wave Vmax 1.1 m/sec - MV deceleration time 218 msec - MV A-wave Vmax 0.71 m/sec - LV lateral e' Vmax 0.11 m/sec - LV E:e' lateral ratio 10 ratio - Name Value Normal Range AV Vmax 1.3 m/sec - AV VTI 24.9 cm - AV peak gradient 7 mmHg - AV mean gradient 5 mmHg - LVOT Vmax 0.88 m/sec - LVOT VTI 17.5 cm - LVOT peak gradient 3 mmHg - LVOT mean gradient 2 mmHg - JON Vmax 1.2 m/sec - Name Value Normal Range PV Vmax 0.91 m/sec -
== END 2018-04-29 12:45 | disposition home or self-care (01) | DRG 207 ==
LOC: ED 17:14 → MEDTELE 20:07
PROVIDERS: ADMIT Internal Medicine; ATTEND Internal Medicine
DX: I31.9 Disease of pericardium, unspecified (principal); I24.9 Acute ischemic heart disease, unspecified; Z68.43 Body mass index [BMI] 50.0-59.9, adult; Q60.0 Renal agenesis, unilateral; F41.9 Anxiety disorder, unspecified; G40.909 Epilepsy, unspecified, not intractable, without status epilepticus; R40.2142 Coma scale, eyes open, spontaneous, at arrival to emergency department; R40.2252 Coma scale, best verbal response, oriented, at arrival to emergency department; G43.909 Migraine, unspecified, not intractable, without status migrainosus; E66.01 Morbid (severe) obesity due to excess calories; R40.2362 Coma scale, best motor response, obeys commands, at arrival to emergency department; I10 Essential (primary) hypertension; E28.2 Polycystic ovarian syndrome; Z82.49 Family history of ischemic heart disease and other diseases of the circulatory system; Z83.3 Family history of diabetes mellitus; Z72.89 Other problems related to lifestyle; Z88.8 Allergy status to other drugs, medicaments and biological substances
CPT/HCPCS: 36415; 71045; 71275; 80053; 80061; 82550; 82553; 83605; 84484; 84702; 85025; 85379; 85610; 85652; 85730; 86140; 93005; 93306; 99284; A9270-GY; C8929; J1644; Q9967